=== PATIENT | female | born 1965 | race African-American/Black ===

== ENCOUNTER 2017-05-14 10:59 | Emergency (ER) | payer SELFPAY ==
[~2017-05-14] VITALS: Ht 165.1 cm; Wt 112.7 kg
[~2017-05-14 10:59] MED LIST: ACET-2744 PO; MOME13HF4 IH
[2017-05-14] MEDS ORDERED: ALBU8HFA IH (11:05)
[2017-05-14] MEDS ORDERED: HYDROCODONE/ACETAMINOPHEN 5-325 MG TABLET PO ONE (12:30)
[2017-05-14 13:30] VITALS: BP 128/86
== END 2017-05-14 13:51 | disposition home or self-care (01) ==
LOC: EMS 11:04
DX: S30.0XXA Contusion of lower back and pelvis, initial encounter (principal); I10 Essential (primary) hypertension; J45.909 Unspecified asthma, uncomplicated; J44.9 Chronic obstructive pulmonary disease, unspecified; F17.210 Nicotine dependence, cigarettes, uncomplicated; W01.0XXA Fall on same level from slipping, tripping and stumbling without subsequent striking against object, initial encounter; Y93.89 Activity, other specified; Y99.8 Other external cause status; Y92.89 Other specified places as the place of occurrence of the external cause
CPT/HCPCS: 72170; 99284; 99406

== ENCOUNTER 2017-06-03 06:25 | Emergency (ER) | payer SELFPAY ==
[~2017-06-03] VITALS: Ht 160 cm; Wt 111.4 kg
[~2017-06-03 06:25] MED LIST changes: -ACET-2744 PO; +ALBU8HFA IH; -MOME13HF4 IH
[2017-06-03] MEDS ORDERED: NAPR250T2 PO (06:33)
[2017-06-03 06:39] VITALS: BP 171/104
[2017-06-03] MEDS ORDERED: KETOROLAC TROMETHAMINE 30 MG/ML VIAL IM ONE (06:45)
== END 2017-06-03 07:18 | disposition home or self-care (01) ==
LOC: EMS 06:26
DX: M54.5 Low back pain (principal); G89.29 Other chronic pain; J44.9 Chronic obstructive pulmonary disease, unspecified; J45.909 Unspecified asthma, uncomplicated; I10 Essential (primary) hypertension; F17.210 Nicotine dependence, cigarettes, uncomplicated; Z76.5 Malingerer [conscious simulation]
CPT/HCPCS: 96372; 99283; J1885